=== PATIENT | female | born 1995 | race Caucasian/White ===

== ENCOUNTER 2017-05-17 19:09 | Emergency (ER) | payer OTHER ==
[~2017-05-17] VITALS: Ht 149.9 cm; Wt 42.2 kg
[2017-05-17 19:38] VITALS: Ht 149.9 cm; Wt 42.2 kg
[2017-05-18 01:01] VITALS: BP 107/72
== END 2017-05-18 01:01 | disposition home or self-care (01) ==
LOC: ED 19:09
DX: S90.32XA Contusion of left foot, initial encounter (principal); S10.91XA Abrasion of unspecified part of neck, initial encounter; V49.9XXA Car occupant (driver) (passenger) injured in unspecified traffic accident, initial encounter; Y93.89 Activity, other specified; Y92.410 Unspecified street and highway as the place of occurrence of the external cause; Y99.8 Other external cause status
CPT/HCPCS: 90715